=== PATIENT | male | born 1970 | race Caucasian/White ===

== ENCOUNTER 2017-09-26 15:10 | Inpatient (IN) | payer OTHER, MEDICAID ==
[2017-09-26] MEDS: ONDANSETRON PF 4 MG/2 ML VIAL. IV (16:06)
[2017-09-26 16:07] LABS: ADD MAN DIFF? NO
[2017-09-26] MEDS: MORPHINE SULFATE 4 MG/ML DISP.SYRIN. IV (16:07)
[2017-09-26 16:13] LABS: BASO # 0.1 x10^3/uL (0.0-0.2); BASO % 1 % (0-3); EOS # 0.1 x10^3/uL (0.0-0.7); EOS % 1 % (0-3); HEMATOCRIT 47.7 % (39.0-53.0); LYMPH # 2.5 x10^3/uL (1.0-4.8); LYMPH % 21 % (24-48); MEAN CORPUSCULAR HEMOGLOBIN 32 pg (25-35); MEAN CORPUSCULAR HGB CONC 34 g/dL (31-37); MEAN CORPUSCULAR VOLUME 94 fL (79-100); MONO # 0.9 x10^3/uL (0.0-1.1); MONO % 8 % (0-9); NEUT # 8.4 x10^3uL (1.8-7.7); NEUT % 70 % (31-73); PLATELET COUNT 210 x10^3/uL (140-400); RED BLOOD COUNT 5.08 x10^6/uL (4.30-5.70); RED CELL DISTRIBUTION WIDTH 13.5 % (11.5-14.5)
[2017-09-26 16:24] LABS: ANION GAP 12 (6-14); BLOOD UREA NITROGEN 18 mg/dL (8-26); BUN/CREATININE RATIO 16 (6-20); CALCIUM 8.9 mg/dL (8.5-10.1); CARBON DIOXIDE 27 mmol/L (21-32); CHLORIDE 100 mmol/L (98-107); CREATININE 1.1 mg/dL (0.7-1.3); GFR 71.8; GLUCOSE 98 mg/dL (70-99); POTASSIUM 4.2 mmol/L (3.5-5.1); SODIUM 139 mmol/L (136-145)
[2017-09-26 16:30] LABS: ALBUMIN 4.4 g/dL (3.4-5.0); ALBUMIN/GLOBULIN RATIO 1.1 (1.0-1.7); ALK PHOS 105 U/L (46-116); ALT (SGPT) 33 U/L (16-63); AST (SGOT) 21 U/L (15-37); C-REACTIVE PROTEIN 11.3 mg/L (0-3.3); TOTAL BILIRUBIN 0.4 mg/dL (0.2-1.0); TOTAL PROTEIN 8.5 g/dL (6.4-8.2)
[2017-09-26] MEDS: DIPHTH,PERTUSS(ACELL),TET TOX 0.5 ML DISP.SYRIN. VAX IM (16:33)
[2017-09-26] MEDS ORDERED: PIPERACILLIN/TAZOBACTAM 3.375 GM in IV DEXTROSE 5% 50 ML IV (16:45)
[2017-09-26] MEDS ORDERED: VANCOMYCIN 1.25 GM in IV NORMAL SALINE 250ML 250 ML IV (17:00)
[2017-09-26] MEDS ORDERED: MORPHINE SULFATE 4 MG/ML DISP.SYRIN. IV (17:00)
[2017-09-26] MEDS ORDERED: ONDANSETRON PF 4 MG/2 ML VIAL. IV (17:00)
[2017-09-26 17:19] LABS: SEDIMENTATION RATE 15 (0-15)
[2017-09-26] MEDS: PIPERACILLIN/TAZO IV Push 3.375 GM VIAL. IVP (17:33)
[2017-09-26] MEDS: VANCOMYCIN 1.25 GM in IV 1/2 NORMAL SALINE 250 ML IV (17:37)
[2017-09-26] MEDS: ACETAMINOPHEN 325 MG TABLET. PO (20:27)
[2017-09-26] MEDS: ZOLPIDEM 5 MG TABLET. PO (21:44)
[2017-09-26] MEDS: ENOXAPARIN 40 MG/0.4 ML SYRINGE. SQ (21:45)
[2017-09-26] MEDS: MORPHINE SULFATE 2 MG/ML DISP.SYRIN. IV (21:52)
[2017-09-27] MEDS ORDERED: PIPERACILLIN/TAZOBACTAM 3.375 GM in IV DEXTROSE 5% 50 ML IV
[2017-09-27] MEDS: PIPERACILLIN/TAZO IV Push 3.375 GM VIAL. IVP ×4 (00:01→18:09)
[2017-09-27] MEDS: HYDROcodone/APAP 7.5/325MG 1 TAB TABLET PO ×3 (00:10→18:10)
[2017-09-27 03:35] LABS: ADD MAN DIFF? NO
[2017-09-27 03:39] LABS: BASO # 0.1 x10^3/uL (0.0-0.2); BASO % 1 % (0-3); EOS # 0.2 x10^3/uL (0.0-0.7); EOS % 2 % (0-3); HEMATOCRIT 43.9 % (39.0-53.0); HEMOGLOBIN 14.7 g/dL (13.0-17.5); LYMPH # 3.1 x10^3/uL (1.0-4.8); LYMPH % 34 % (24-48); MEAN CORPUSCULAR HEMOGLOBIN 32 pg (25-35); MEAN CORPUSCULAR HGB CONC 34 g/dL (31-37); MEAN CORPUSCULAR VOLUME 95 fL (79-100); MONO # 1.1 x10^3/uL (0.0-1.1); MONO % 12 % (0-9); NEUT # 4.7 x10^3uL (1.8-7.7); NEUT % 51 % (31-73); PLATELET COUNT 180 x10^3/uL (140-400); RED BLOOD COUNT 4.63 x10^6/uL (4.30-5.70); RED CELL DISTRIBUTION WIDTH 13.9 % (11.5-14.5); WHITE BLOOD COUNT 9.2 x10^3/uL (4.0-11.0)
[2017-09-27 04:08] LABS: ALBUMIN 3.5 g/dL (3.4-5.0); ALK PHOS 85 U/L (46-116); ALT (SGPT) 28 U/L (16-63); ANION GAP 9 (6-14); AST (SGOT) 18 U/L (15-37); BLOOD UREA NITROGEN 21 mg/dL (8-26); BUN/CREATININE RATIO 18 (6-20); CALCIUM 8.3 mg/dL (8.5-10.1); CARBON DIOXIDE 28 mmol/L (21-32); CHLORIDE 105 mmol/L (98-107); CREATININE 1.2 mg/dL (0.7-1.3); GFR 64.9; GLUCOSE 99 mg/dL (70-99); POTASSIUM 3.9 mmol/L (3.5-5.1); SODIUM 142 mmol/L (136-145); TOTAL BILIRUBIN 0.3 mg/dL (0.2-1.0)
[2017-09-27] MEDS: MORPHINE SULFATE 2 MG/ML DISP.SYRIN. IV ×3 (06:04→19:23)
[2017-09-27] MEDS: NICOTINE 21MG PATCH. TD (08:31)
[2017-09-27] MEDS: PNEUMOC CONJ VACC 23-VALENT 0.5 ML VIAL. VAX IM (08:33)
[2017-09-27] MEDS: LACTOBACILLUS RHAMNOSUS GG 1 CAPSULE. PO ×2 (08:35→21:38)
[2017-09-27] MEDS: FLU VACC QS2017-18 (36MOS+)/PF 0.5 ML SYRINGE. VAX IM (08:35)
[2017-09-27] MEDS ORDERED: INFLUENZA VAX SCREEN BY RX. MC (09:00)
[2017-09-27] MEDS ORDERED: PNEUMOCOCCAL VAX SCREEN BY RX. MC (09:00)
[2017-09-27] MEDS: VANCOMYCIN 2 GM in IV DEXTROSE 5 %-0.2 % NACL 500 ML IV (15:27)
[2017-09-27] MEDS: VANCOMYCIN PER PHARMACY MC (17:11)
[2017-09-27] MEDS: ENOXAPARIN 40 MG/0.4 ML SYRINGE. SQ (21:39)
[2017-09-27] MEDS: ZOLPIDEM 5 MG TABLET. PO (22:32)
[2017-09-28] MEDS: PIPERACILLIN/TAZO IV Push 3.375 GM VIAL. IVP ×4 (00:18→18:23)
[2017-09-28] MEDS: HYDROcodone/APAP 7.5/325MG 1 TAB TABLET PO ×3 (03:13→18:24)
[2017-09-28] MEDS: VANCOMYCIN 1.25 GM in IV 1/2 NORMAL SALINE 250 ML IV ×2 (03:18→15:01)
[2017-09-28] MEDS: MORPHINE SULFATE 2 MG/ML DISP.SYRIN. IV ×4 (05:13→23:04)
[2017-09-28] MEDS: NICOTINE 21MG PATCH. TD (08:47)
[2017-09-28] MEDS: LACTOBACILLUS RHAMNOSUS GG 1 CAPSULE. PO (08:48)
[2017-09-28] MEDS ORDERED: ONDANSETRON ODT 4 MG TAB.RAPDIS. PO (13:45)
[2017-09-28] MEDS ORDERED: ONDANSETRON PF 4 MG/2 ML VIAL. IV (13:45)
[2017-09-28] MEDS ORDERED: ACETAMINOPHEN 500 MG TABLET PO (13:45)
[2017-09-28] MEDS: HYDROcodone/APAP 5/325MG 1 TAB TABLET PO (15:01)
[2017-09-28] MEDS: IBUPROFEN 600 MG TABLET. PO (15:01)
[2017-09-29] MEDS: VANCOMYCIN 1.25 GM in IV 1/2 NORMAL SALINE 250 ML IV (03:56)
[2017-09-29] MEDS: PIPERACILLIN/TAZO IV Push 3.375 GM VIAL. IVP ×4 (06:09→17:25)
[2017-09-29] MEDS: HYDROcodone/APAP 7.5/325MG 1 TAB TABLET PO ×2 (06:19→16:01)
[2017-09-29] MEDS: VANCOMYCIN PER PHARMACY MC (06:44)
[2017-09-29] MEDS: NICOTINE 21MG PATCH. TD (08:55)
[2017-09-29] MEDS: IBUPROFEN 600 MG TABLET. PO ×4 (08:55→21:11)
[2017-09-29] MEDS: LACTOBACILLUS RHAMNOSUS GG 1 CAPSULE. PO ×3 (08:55→21:11)
[2017-09-29] MEDS: HYDROcodone/APAP 5/325MG 1 TAB TABLET PO (10:05)
[2017-09-29] MEDS: POLYETHYLENE GLYCOL 3350 17 GM PACKET. PO (11:56)
[2017-09-29] MEDS: oxyCODONE ER 10 MG TAB.ER.12H PO ×2 (11:56→20:50)
[2017-09-29] MEDS: VANCOMYCIN 1 GM in IV 1/2 NORMAL SALINE 250 ML IV ×2 (11:57→21:13)
[2017-09-30] MEDS: PIPERACILLIN/TAZO IV Push 3.375 GM VIAL. IVP ×4 (00:15→17:40)
[2017-09-30] MEDS: VANCOMYCIN 1 GM in IV 1/2 NORMAL SALINE 250 ML IV ×3 (04:47→21:08)
[2017-09-30] MEDS: DOCUSATE SODIUM 100 MG CAPSULE. PO (08:46)
[2017-09-30] MEDS: LACTOBACILLUS RHAMNOSUS GG 1 CAPSULE. PO ×2 (08:46→21:07)
[2017-09-30] MEDS: oxyCODONE ER 10 MG TAB.ER.12H PO ×2 (08:47→21:07)
[2017-09-30] MEDS: IBUPROFEN 600 MG TABLET. PO ×3 (08:47→21:07)
[2017-09-30] MEDS: NICOTINE 21MG PATCH. TD (08:48)
[2017-09-30] MEDS: MORPHINE SULFATE 2 MG/ML DISP.SYRIN. IV ×2 (08:54→12:02)
[2017-09-30] MEDS: POLYETHYLENE GLYCOL 3350 17 GM PACKET. PO (08:59)
[2017-09-30] MEDS: VANCOMYCIN PER PHARMACY MC (13:08)
[2017-09-30] MEDS: HYDROcodone/APAP 7.5/325MG 1 TAB TABLET PO ×2 (17:40→23:19)
[2017-10-01] MEDS: PIPERACILLIN/TAZO IV Push 3.375 GM VIAL. IVP ×4 (00:33→16:25)
[2017-10-01] MEDS: VANCOMYCIN 1 GM in IV 1/2 NORMAL SALINE 250 ML IV ×3 (04:26→20:21)
[2017-10-01] MEDS: LACTOBACILLUS RHAMNOSUS GG 1 CAPSULE. PO ×2 (08:43→20:20)
[2017-10-01] MEDS: IBUPROFEN 600 MG TABLET. PO ×3 (08:43→20:20)
[2017-10-01] MEDS: NICOTINE 21MG PATCH. TD (08:43)
[2017-10-01] MEDS: oxyCODONE ER 10 MG TAB.ER.12H PO ×2 (08:43→20:20)
[2017-10-01] MEDS: HYDROcodone/APAP 7.5/325MG 1 TAB TABLET PO ×2 (08:44→16:24)
[2017-10-01] MEDS: DOCUSATE SODIUM 100 MG CAPSULE. PO (08:44)
[2017-10-01] MEDS: POLYETHYLENE GLYCOL 3350 17 GM PACKET. PO (08:44)
[2017-10-01] MEDS: VANCOMYCIN PER PHARMACY MC ×2 (13:17→15:49)
[2017-10-01] MEDS ORDERED: GADOBUTROL 10 MMOL/10 ML VIAL IV (14:15)
[2017-10-02] MEDS: PIPERACILLIN/TAZO IV Push 3.375 GM VIAL. IVP ×4 (01:39→18:03)
[2017-10-02] MEDS: VANCOMYCIN 1 GM in IV 1/2 NORMAL SALINE 250 ML IV ×3 (04:04→20:48)
[2017-10-02] MEDS: LACTOBACILLUS RHAMNOSUS GG 1 CAPSULE. PO ×2 (08:17→20:47)
[2017-10-02] MEDS: NICOTINE 21MG PATCH. TD (08:17)
[2017-10-02] MEDS: oxyCODONE ER 10 MG TAB.ER.12H PO ×2 (08:18→20:48)
[2017-10-02] MEDS: IBUPROFEN 600 MG TABLET. PO ×3 (08:18→20:48)
[2017-10-02] MEDS: DOCUSATE SODIUM 100 MG CAPSULE. PO (08:21)
[2017-10-02] MEDS: POLYETHYLENE GLYCOL 3350 17 GM PACKET. PO (08:22)
[2017-10-02] MEDS: HYDROcodone/APAP 7.5/325MG 1 TAB TABLET PO ×3 (09:47→22:50)
[2017-10-02 15:45] LABS: ADD MAN DIFF? NO
[2017-10-02 15:50] LABS: BASO # 0.1 x10^3/uL (0.0-0.2); BASO % 1 % (0-3); EOS # 0.2 x10^3/uL (0.0-0.7); EOS % 3 % (0-3); HEMATOCRIT 41.3 % (39.0-53.0); LYMPH # 1.9 x10^3/uL (1.0-4.8); LYMPH % 26 % (24-48); MEAN CORPUSCULAR HEMOGLOBIN 32 pg (25-35); MEAN CORPUSCULAR HGB CONC 34 g/dL (31-37); MEAN CORPUSCULAR VOLUME 94 fL (79-100); MONO # 0.8 x10^3/uL (0.0-1.1); MONO % 10 % (0-9); NEUT # 4.5 x10^3uL (1.8-7.7); NEUT % 60 % (31-73); PLATELET COUNT 200 x10^3/uL (140-400); RED BLOOD COUNT 4.41 x10^6/uL (4.30-5.70); WHITE BLOOD COUNT 7.4 x10^3/uL (4.0-11.0)
[2017-10-02 16:34] LABS: ANION GAP 10 (6-14); BLOOD UREA NITROGEN 14 mg/dL (8-26); CALCIUM 8.6 mg/dL (8.5-10.1); CARBON DIOXIDE 25 mmol/L (21-32); CHLORIDE 106 mmol/L (98-107); GFR 80.1; GLUCOSE 90 mg/dL (70-99); SODIUM 141 mmol/L (136-145)
[2017-10-02] MEDS: VANCOMYCIN PER PHARMACY MC (16:48)
[2017-10-03] MEDS: PIPERACILLIN/TAZO IV Push 3.375 GM VIAL. IVP ×4 (00:13→18:00)
[2017-10-03] MEDS: VANCOMYCIN 1 GM in IV 1/2 NORMAL SALINE 250 ML IV ×3 (03:33→20:17)
[2017-10-03] MEDS: HYDROcodone/APAP 7.5/325MG 1 TAB TABLET PO ×3 (05:42→18:10)
[2017-10-03 06:02] LABS: ADD MAN DIFF? NO
[2017-10-03 06:34] LABS: ANION GAP 10 (6-14); BLOOD UREA NITROGEN 16 mg/dL (8-26); CALCIUM 8.2 mg/dL (8.5-10.1); CARBON DIOXIDE 25 mmol/L (21-32); CHLORIDE 106 mmol/L (98-107); GFR 80.1; GLUCOSE 91 mg/dL (70-99); POTASSIUM 4.1 mmol/L (3.5-5.1); SODIUM 141 mmol/L (136-145)
[2017-10-03 07:57] LABS: SEDIMENTATION RATE 8 (0-15)
[2017-10-03 08:19] LABS: BASO # 0.1 x10^3/uL (0.0-0.2); BASO % 1 % (0-3); EOS # 0.3 x10^3/uL (0.0-0.7); EOS % 4 % (0-3); HEMATOCRIT 40.5 % (39.0-53.0); HEMOGLOBIN 13.9 g/dL (13.0-17.5); LYMPH # 2.4 x10^3/uL (1.0-4.8); LYMPH % 37 % (24-48); MEAN CORPUSCULAR HEMOGLOBIN 32 pg (25-35); MEAN CORPUSCULAR HGB CONC 34 g/dL (31-37); MEAN CORPUSCULAR VOLUME 93 fL (79-100); MONO # 0.8 x10^3/uL (0.0-1.1); MONO % 12 % (0-9); NEUT # 2.9 x10^3uL (1.8-7.7); NEUT % 45 % (31-73); PLATELET COUNT 207 x10^3/uL (140-400); RED BLOOD COUNT 4.35 x10^6/uL (4.30-5.70); RED CELL DISTRIBUTION WIDTH 13.4 % (11.5-14.5); WHITE BLOOD COUNT 6.4 x10^3/uL (4.0-11.0)
[2017-10-03] MEDS: amLODIPine BESYLATE 5 MG TABLET PO (09:00)
[2017-10-03] MEDS: DOCUSATE SODIUM 100 MG CAPSULE. PO (09:00)
[2017-10-03] MEDS: POLYETHYLENE GLYCOL 3350 17 GM PACKET. PO (09:00)
[2017-10-03] MEDS: oxyCODONE ER 10 MG TAB.ER.12H PO ×2 (09:18→20:18)
[2017-10-03] MEDS: NICOTINE 21MG PATCH. TD (09:18)
[2017-10-03] MEDS: LACTOBACILLUS RHAMNOSUS GG 1 CAPSULE. PO ×2 (09:18→20:18)
[2017-10-03] MEDS: IBUPROFEN 600 MG TABLET. PO ×3 (09:19→20:18)
[2017-10-03] MEDS: VANCOMYCIN PER PHARMACY MC (14:40)
[2017-10-03] MEDS: ZOLPIDEM 5 MG TABLET. PO (21:43)
[2017-10-03] MEDS: LORazepam 0.5 MG TABLET PO (21:43)
[2017-10-04] MEDS: HYDROcodone/APAP 7.5/325MG 1 TAB TABLET PO ×4 (00:21→23:24)
[2017-10-04] MEDS: PIPERACILLIN/TAZO IV Push 3.375 GM VIAL. IVP ×3 (00:21→12:48)
[2017-10-04] MEDS: VANCOMYCIN 1 GM in IV 1/2 NORMAL SALINE 250 ML IV ×2 (03:49→12:50)
[2017-10-04] MEDS: NICOTINE 21MG PATCH. TD (08:54)
[2017-10-04] MEDS: oxyCODONE ER 10 MG TAB.ER.12H PO ×2 (08:57→20:40)
[2017-10-04] MEDS: amLODIPine BESYLATE 5 MG TABLET PO (08:57)
[2017-10-04] MEDS: LACTOBACILLUS RHAMNOSUS GG 1 CAPSULE. PO ×2 (08:57→20:39)
[2017-10-04] MEDS: DOCUSATE SODIUM 100 MG CAPSULE. PO (08:57)
[2017-10-04] MEDS: IBUPROFEN 600 MG TABLET. PO ×3 (08:57→20:40)
[2017-10-04] MEDS: POLYETHYLENE GLYCOL 3350 17 GM PACKET. PO (08:57)
[2017-10-04] MEDS: LORazepam 0.5 MG TABLET PO (09:02)
[2017-10-04] MEDS: VANCOMYCIN PER PHARMACY MC (13:18)
[2017-10-04] MEDS: LINEZOLID 600 MG TABLET PO ×2 (15:59→20:40)
[2017-10-04] MEDS: CEFEPIME HCL IV Push 2 GM VIAL. IVP ×2 (16:00→20:38)
[2017-10-04] MEDS ORDERED: CEFEPIME HCL 2 GM in IV DEXTROSE 5% 100 ML IV (21:00)
[2017-10-05] MEDS: oxyCODONE ER 10 MG TAB.ER.12H PO (08:14)
[2017-10-05] MEDS: HYDROcodone/APAP 7.5/325MG 1 TAB TABLET PO ×2 (08:14→13:33)
[2017-10-05] MEDS: POLYETHYLENE GLYCOL 3350 17 GM PACKET. PO (09:00)
[2017-10-05] MEDS: DOCUSATE SODIUM 100 MG CAPSULE. PO (09:00)
[2017-10-05] MEDS: LACTOBACILLUS RHAMNOSUS GG 1 CAPSULE. PO (09:24)
[2017-10-05] MEDS: NICOTINE 21MG PATCH. TD (09:25)
[2017-10-05] MEDS: amLODIPine BESYLATE 5 MG TABLET PO (09:25)
[2017-10-05] MEDS: IBUPROFEN 600 MG TABLET. PO (09:25)
[2017-10-05] MEDS: LINEZOLID 600 MG TABLET PO (09:25)
[2017-10-05] MEDS: CEFEPIME HCL IV Push 2 GM VIAL. IVP (09:26)
== END 2017-10-05 14:21 | disposition home health service (06) | DRG 605 ==
LOC: ER 15:10 → ED HOLD 16:37 → 5 NORTH 19:44
PROC: 02HV33Z Insertion of Infusion Device into Superior Vena Cava, Percutaneous Approach (ICD-10-PCS; principal; 2017-10-04)
DX: S91.311A Laceration without foreign body, right foot, initial encounter (principal); L03.115 Cellulitis of right lower limb; T79.7XXA Traumatic subcutaneous emphysema, initial encounter; F17.200 Nicotine dependence, unspecified, uncomplicated; G40.909 Epilepsy, unspecified, not intractable, without status epilepticus; M60.9 Myositis, unspecified; Z82.49 Family history of ischemic heart disease and other diseases of the circulatory system; W22.8XXA Striking against or struck by other objects, initial encounter; M19.90 Unspecified osteoarthritis, unspecified site; S91.331A Puncture wound without foreign body, right foot, initial encounter; Z81.8 Family history of other mental and behavioral disorders; Y93.89 Activity, other specified; Y92.89 Other specified places as the place of occurrence of the external cause; Y99.8 Other external cause status
CPT/HCPCS: 36415; 36569; 73610; 73630; 73700; 73720; 80048; 80053; 80202; 83605; 85025; 85651; 86140; 87040; 87071; 87075; 87205; 90471; 90686; 90715; 90732; 96372; 96374; 96375; 99285; 99285-25; J0692; J1650; J2270; J2405; J2543; J3370

== ENCOUNTER → 2017-10-08 | Outpatient (CLI) | payer OTHER ==
[2017-10-08 12:14] LABS: ADD MAN DIFF? NO
[2017-10-08 12:22] LABS: BASO # 0.1 x10^3/uL (0.0-0.2); BASO % 1 % (0-3); EOS # 0.2 x10^3/uL (0.0-0.7); EOS % 2 % (0-3); HEMOGLOBIN 14.3 g/dL (13.0-17.5); LYMPH # 2.4 x10^3/uL (1.0-4.8); LYMPH % 28 % (24-48); MEAN CORPUSCULAR HEMOGLOBIN 32 pg (25-35); MEAN CORPUSCULAR HGB CONC 33 g/dL (31-37); MEAN CORPUSCULAR VOLUME 95 fL (79-100); MONO # 1.1 x10^3/uL (0.0-1.1); MONO % 13 % (0-9); NEUT # 4.8 x10^3uL (1.8-7.7); NEUT % 56 % (31-73); PLATELET COUNT 220 x10^3/uL (140-400); RED BLOOD COUNT 4.53 x10^6/uL (4.30-5.70); RED CELL DISTRIBUTION WIDTH 13.2 % (11.5-14.5); WHITE BLOOD COUNT 8.5 x10^3/uL (4.0-11.0)
[2017-10-08 12:40] LABS: ALBUMIN 4.4 g/dL (3.4-5.0); ALBUMIN/GLOBULIN RATIO 1.3 (1.0-1.7); ALK PHOS 87 U/L (46-116); ALT (SGPT) 40 U/L (16-63); ANION GAP 12 (6-14); AST (SGOT) 29 U/L (15-37); BLOOD UREA NITROGEN 14 mg/dL (8-26); BUN/CREATININE RATIO 16 (6-20); CALCIUM 8.8 mg/dL (8.5-10.1); CARBON DIOXIDE 25 mmol/L (21-32); CHLORIDE 104 mmol/L (98-107); CREATININE 0.9 mg/dL (0.7-1.3); GFR 90.4; GLUCOSE 94 mg/dL (70-99); POTASSIUM 4.3 mmol/L (3.5-5.1); SODIUM 141 mmol/L (136-145); TOTAL BILIRUBIN 0.4 mg/dL (0.2-1.0); TOTAL PROTEIN 7.8 g/dL (6.4-8.2)
[2017-10-08 13:19] LABS: SEDIMENTATION RATE 9 (0-15)
== END | disposition home or self-care (01) ==
LOC: SPEC 12:09
DX: I10 Essential (primary) hypertension (principal); L03.90 Cellulitis, unspecified
CPT/HCPCS: 36415; 80053; 85025; 85651

== ENCOUNTER → 2017-10-15 | Outpatient (CLI) | payer OTHER ==
[2017-10-15 16:27] LABS: ADD MAN DIFF? NO
[2017-10-15 16:40] LABS: BASO # 0.1 x10^3/uL (0.0-0.2); BASO % 1 % (0-3); EOS # 0.2 x10^3/uL (0.0-0.7); EOS % 2 % (0-3); HEMATOCRIT 40.1 % (39.0-53.0); HEMOGLOBIN 13.5 g/dL (13.0-17.5); LYMPH # 1.9 x10^3/uL (1.0-4.8); LYMPH % 26 % (24-48); MEAN CORPUSCULAR HEMOGLOBIN 32 pg (25-35); MEAN CORPUSCULAR HGB CONC 34 g/dL (31-37); MEAN CORPUSCULAR VOLUME 94 fL (79-100); MONO # 0.7 x10^3/uL (0.0-1.1); MONO % 10 % (0-9); NEUT # 4.3 x10^3uL (1.8-7.7); NEUT % 61 % (31-73); PLATELET COUNT 206 x10^3/uL (140-400); RED BLOOD COUNT 4.25 x10^6/uL (4.30-5.70); RED CELL DISTRIBUTION WIDTH 13.5 % (11.5-14.5); WHITE BLOOD COUNT 7.1 x10^3/uL (4.0-11.0)
[2017-10-15 17:14] LABS: ALBUMIN 3.9 g/dL (3.4-5.0); ALBUMIN/GLOBULIN RATIO 1.3 (1.0-1.7); ALK PHOS 78 U/L (46-116); ALT (SGPT) 23 U/L (16-63); ANION GAP 10 (6-14); AST (SGOT) 17 U/L (15-37); BLOOD UREA NITROGEN 15 mg/dL (8-26); BUN/CREATININE RATIO 19 (6-20); CALCIUM 8.1 mg/dL (8.5-10.1); CARBON DIOXIDE 24 mmol/L (21-32); CHLORIDE 106 mmol/L (98-107); CREATININE 0.8 mg/dL (0.7-1.3); GFR 103.6; GLUCOSE 87 mg/dL (70-99); POTASSIUM 4.1 mmol/L (3.5-5.1); SODIUM 140 mmol/L (136-145); TOTAL BILIRUBIN 0.3 mg/dL (0.2-1.0)
[2017-10-15 17:49] LABS: SEDIMENTATION RATE 5 (0-15)
== END | disposition home or self-care (01) ==
LOC: SPEC 16:21
DX: L03.115 Cellulitis of right lower limb (principal); Z79.2 Long term (current) use of antibiotics
CPT/HCPCS: 36415; 80053; 85025; 85651

== ENCOUNTER 2019-05-27 14:18 | Emergency (ER) | payer OTHER ==
[~2019-05-27] VITALS: Ht 193 cm; Wt 77.1 kg
[~2019-05-27 14:18] MED LIST: AMLO5TAB10 PO; HYDR-2765 PO; IBUP-985 PO
--- NOTE | 2019-05-27 14:41 | PHYS DOC ---
Past Medical History Past Medical History: Seizure Additional Past Medical Histor: BLACK OUTS R/O FRONTAL LOBE DAMAGE PT BORN WITH Past Surgical History: No Surgical History Alcohol Use: None Drug Use: None Adult General Chief Complaint Chief Complaint: MECHANICAL FALL HPI HPI Patient is a 48 year old male who presents with complaints of fall. Patient's states he was sent him back off a platform and hit his head. Unknown loss of consciousness. Patient has underlying history of seizure disorder however states is noncompliant with medication, most recent seizure yesterday. Patient has abrasion appreciated to the right middle finger. No significant laceration to repair. He denies neck pain on examination. Review of Systems Review of Systems Constitutional: Denies fever or chills [] Eyes: Denies change in visual acuity, redness, or eye pain [] Respiratory: Denies cough or shortness of breath [] Cardiovascular: No additional information not addressed in HPI, no chest pain[] GI: Denies abdominal pain, nausea, vomiting, bloody stools or diarrhea [] Musculoskeletal: thoracic tenderness, middle finger with abrasion, no significant laceration[] Neurologic: Denies headache, focal weakness or sensory changes patient with unknown loss of consciousness All other systems were reviewed and found to be within normal limits, except as documented in this note. Allergies Allergies Allergies Coded Allergies Type Severity Reaction Last Updated Verified No Known Drug Allergies 09/26/17 No Physical Exam Physical Exam Constitutional: Well developed, well nourished, no acute distress, non-toxic appearance. [] HENT: Normocephalic, atraumatic, bilateral external ears normal [] Eyes: PERRLA, EOMI, conjunctiva normal, no discharge. [] Neck: Normal range of motion, no tenderness, supple [] Cardiovascular:Heart rate regular rhythm, no murmur [] Lungs & Thorax: Bilateral breath sounds clear to auscultation [] Abdomen: Bowel sounds normal, soft, no tenderness, no masses, no pulsatile masses. [] Skin: Warm, dry, no erythema, no rash. [] Back: Thoracic/lumbar tenderness, no limited range of motion[] Extremities: Tenderness appreciated to right middle finger, abrasion with skin removed, no evidence of laceration[] Neurologic: Alert and oriented X 3, normal motor function, normal sensory function, no focal deficits noted. [] Psychologic: Affect normal, judgement normal, mood normal. [] Current Patient Data Vital Signs Vital Signs Date Time Temp Pulse Resp B/P (MAP) Pulse Ox O2 Delivery O2 Flow Rate FiO2 05/27/19 15:17 77 18 95 05/27/19 14:27 98.0 146/93 (110) Room Air 98.0 EKG EKG EKG reviewed without evidence of acute ST or T-wave change. Normal axis appreciated, normal sinus rhythm[] Interpretation Time: 1441 Radiology/Procedures Radiology/[place] [address] IMAGING REPORT Signed PATIENT: ADDY MOE AACCOUNT: [id number] : 1970 LOCATION: ER AGE: 48 SEX: M EXAM STATUS: REG ER ORD. PHYSICIAN: KODAK MANUEL MD REASON: fall, lumbar tenderness appreciated PROCEDURE: THORACOLUMBAR 2V 2 view study of the thoracic lumbar spine Clinical indications: Fall. Lumbar tenderness. FINDINGS: No acute compression fracture or discitis or lytic process is evident. There is mild degenerative endplate spurring present. IMPRESSION: No acute compression fracture. Electronically signed by: Kerri Santoyo MD (05/27/2019 3:09 PM) [facility] DICTATED and SIGNED BY: KERRI SANTOYO MD DATE: 05/27/[address] [id number] IMAGING REPORT Signed PATIENT: ADDY MOE AACCOUNT: [id number] : 1970 LOCATION: ER AGE: 48 SEX: M EXAM STATUS: REG ER ORD. PHYSICIAN: KODAK MANUEL MD REASON: Fall, abrasion to right middle finger, limited ROM 2/2 pain PROCEDURE: HAND RIGHT 2V HAND RIGHT 2V History: History of trauma. Right middle finger injury. Limited range of motion. Pain. Technique: 2 views right hand. Comparison: None. Findings: Density along the volar aspect of the third distal phalanx. There is adjacent soft tissue swelling. Otherwise, normal alignment. No additional fracture. Impression: 1. Density along the volar aspect of the third distal phalanx, may indicate avulsion fracture or foreign body. Electronically signed by: Madhu Sims DO (05/27/2019 2:56 PM) [facility] DICTATED and SIGNED BY: MADHU SIMS DO DATE: 05/27/19 1456 [facility] [address] [place] [address] IMAGING REPORT Signed PATIENT: ADDY MOE AACCOUNT: [id number] : 1970 LOCATION: ER AGE: 48 SEX: M EXAM STATUS: REG ER ORD. PHYSICIAN: KODAK MANUEL MD REASON: Fell off truck, hit head, unknown LOC PROCEDURE: CT HEAD WO CONTRAST CT HEAD WO CONTRAST History: Trauma. Headache. Comparison: None. Technique: Noncontrast CT imaging was performed of the head. Exposure: One or more of the following individualized dose reduction techniques were utilized for this examination: 1. Automated exposure control 2. Adjustment of the mA and/or kV according to patient size 3. Use of iterative reconstruction technique. Findings: No intracranial hemorrhage. No mass effect. No hydrocephalus. 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 Extra-axial spaces are unremarkable. Imaged orbits are unremarkable. Imaged paranasal sinuses and mastoid air cells are clear. Impression: 1. No acute intracranial abnormality. Electronically signed by: Madhu Sims DO (05/27/2019 3:03 PM) [facility] DICTATED and SIGNED BY: MADHU SIMS DO DATE: 05/27/19 1503 Course & Med Decision Making Course & Med Decision Making Pertinent Labs and Imaging studies reviewed. (See chart for details) Patient presents after a fall, unknown loss of consciousness. Patient has a history of seizure disorder however is noncompliant with medication. No blood thinning medications. States last Td within the last 5 years. Patient does have abrasion pressure to right middle finger, pain with range of motion. No evidence of lacerations repair. Given unknown loss of consciousness, CT of head will be performed. Patient has no neck pain, normal range of motion. He does describe thoracolumbar pain on palpation. No paraspinal tenderness. Imaging will be performed. Imaging reviewed, CT of the head without evidence of acute process, thoracolumbar evaluation without acute fracture, x-ray of right hand reveals avulsion fracture of right middle finger. Dragon Disclaimer Dragon Disclaimer This electronic medical record was generated, in whole or in part, using a voice recognition dictation system. Departure Departure Impression: Primary Impression: Fall Additional Impressions: Finger abrasion Avulsion fracture of distal phalanx of finger Thoracolumbar back pain Non-compliance Disposition: HOME, SELF-CARE Condition: STABLE Referrals: NO PCP (PCP) LUNA AVALOS II, MD Patient Instructions: Abrasion, [id number], Avulsion Fracture, Back Pain, Adult Scripts Ibuprofen (IBUPROFEN) 800 Mg Tablet 800 MG PO PRN Q8HRS PRN for INFLAMMATION, #20 TAB Prov: KODAK MANUEL MD 05/27/19 Problem Qualifiers Primary Impression: Fall Encounter type: initial encounter Qualified Codes: W19.XXXA - Unspecified fall, initial encounter Additional Impressions: Finger abrasion Encounter type: initial encounter Qualified Codes: S60.419A - Abrasion of unspecified finger, initial encounter Avulsion fracture of distal phalanx of finger Encounter type: initial encounter Fracture type: closed Qualified Codes: S62.639A - Displaced fracture of distal phalanx of unspecified finger, initial encounter for closed fracture KODAK MANUEL MD May 27, 2019 14:41
--- NOTE | 2019-05-27 14:59 | RAD ---
HAND RIGHT 2V History: History of trauma. Right middle finger injury. Limited range of motion. Pain. Technique: 2 views right hand. Comparison: None. Findings: Density along the volar aspect of the third distal phalanx. There is adjacent soft tissue swelling. Otherwise, normal alignment. No additional fracture. Impression: 1. Density along the volar aspect of the third distal phalanx, may indicate avulsion fracture or foreign body. Electronically signed by: Madhu Sims DO (05/27/2019 2:56 PM) [facility]
--- NOTE | 2019-05-27 15:06 | RAD ---
CT HEAD WO CONTRAST History: Trauma. Headache. Comparison: None. Technique: Noncontrast CT imaging was performed of the head. Exposure: One or more of the following individualized dose reduction techniques were utilized for this examination: 1. Automated exposure control 2. Adjustment of the mA and/or kV according to patient size 3. Use of iterative reconstruction technique. Findings: No intracranial hemorrhage. No mass effect. No hydrocephalus. 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 Extra-axial spaces are unremarkable. Imaged orbits are unremarkable. Imaged paranasal sinuses and mastoid air cells are clear. Impression: 1. No acute intracranial abnormality. Electronically signed by: Madhu Sims DO (05/27/2019 3:03 PM) [facility]
--- NOTE | 2019-05-27 15:13 | RAD ---
2 view study of the thoracic lumbar spine Clinical indications: Fall. Lumbar tenderness. FINDINGS: No acute compression fracture or discitis or lytic process is evident. There is mild degenerative endplate spurring present. IMPRESSION: No acute compression fracture. Electronically signed by: George Santoyo MD (05/27/2019 3:09 PM) [facility]
--- NOTE | 2019-05-27 15:38 | EKG ---
[facility] [address] [place] [address] Test Date: 2019-05-27 Test Time: 14:37:56 Pat Name: ADDY MOE Department: Room: Gender: M Program Scheduler: : 1970 Requested By: KODAK MANUEL Order Number: [id number] Reading MD: Measurements Intervals [place] Rate: 82 P: 51 CA: 160 QRS: 54 QRSD: 84 T: 63 QT: 366 QTc: 430 Interpretive Statements SINUS RHYTHM NORMAL ECG No previous ECG available for comparison
[2019-05-27] MEDS ORDERED: IBUP-1060 PO (15:46)
[2019-05-27 16:05] VITALS: BP 145/94
== END 2019-05-27 16:15 | disposition home or self-care (01) ==
LOC: ER 14:18
DX: S62.632A Displaced fracture of distal phalanx of right middle finger, initial encounter for closed fracture (principal); M54.5 Low back pain; M54.6 Pain in thoracic spine; Z91.14 Patient's other noncompliance with medication regimen; W17.89XA Other fall from one level to another, initial encounter; Y93.89 Activity, other specified; Y92.89 Other specified places as the place of occurrence of the external cause; Y99.8 Other external cause status
CPT/HCPCS: 29130; 70450; 72080; 73120; 93005; 99284